=== PATIENT | female | born 1985 | race Caucasian/White ===

== ENCOUNTER 2021-10-20 02:33 | Emergency (ER) | payer SELFPAY ==
[~2021-10-20] VITALS: Ht 157.5 cm; Wt 61.2 kg
[2021-10-20 02:42] VITALS: BP 113/67
[2021-10-20] MEDS ORDERED: FLUORESCEIN SODIUM OPHTH 1 EA STRIP ONE (03:09)
--- NOTE | 2021-10-20 03:18 | NUR ---
patient left without being seen.
[2021-10-20] MEDS ORDERED: TETRACAINE HCL 0.5% OPHTALMIC 15 ML BOTTLE OP ONE (03:30)
[2021-10-20] MEDS ORDERED: FLUORESCEIN SODIUM OPHTH 1 EA STRIP OP ONE (03:30)
== END 2021-10-20 03:19 | disposition home or self-care (01) ==
LOC: ER 02:36
DX: Z53.21 Procedure and treatment not carried out due to patient leaving prior to being seen by health care provider (principal); S05.91XA Unspecified injury of right eye and orbit, initial encounter; X58.XXXA Exposure to other specified factors, initial encounter; Y93.89 Activity, other specified; Y92.89 Other specified places as the place of occurrence of the external cause; Y99.8 Other external cause status